=== PATIENT | male | born 1935 | race Caucasian/White ===

== ENCOUNTER 2016-08-07 07:34 | Observation (INO) | payer MEDICARE, OTHER ==
[2016-08-07] MEDS ORDERED: Furosemide 20 MG Tab PO ONE (09:15)
[2016-08-07] MEDS ORDERED: Carvedilol 3.125 MG Tab PO ONE (09:15)
[2016-08-07] MEDS ORDERED: Lisinopril 10 MG Tab PO ONE (09:15)
--- NOTE | 2016-08-07 09:47 | EDM.PDOC ---
ED HPI GENERAL MEDICAL PROBLEM - General Chief Complaint: General Stated Complaint: Not feeling well Time Seen by Provider: 08/07/16 08:21 Source of Information: Reports: Patient History Limitations: Reports: No Limitations - History of Present Illness INITIAL COMMENTS - FREE TEXT/NARRATIVE: This is a 80yo M presenting to the ER with complaints of dizziness. Patient denies any sob or other concerns. He states he has had cardiac history in the past and was told he didn't have symptoms at the time. Patient is concerned that there is something wrong. He is feeling a little better than before but continues to feel lightheaded. He has had prior episodes of dizziness but states this last episode is worse. Onset: Sudden Duration: Hour(s):, Constant, Improving Location: Reports: Generalized Severity: Mild Improves with: Reports: None Worsens with: Reports: None Associated Symptoms: Reports: Weakness - Related Data Allergies Allergy/AdvReac Type Severity Reaction Status Date / Time No Known Allergies Allergy Verified 08/07/16 07:43 Home Meds: Home Meds Aspirin [Ecotrin] 81 mg PO DAILY 07/08/14 [History] Furosemide [Lasix] 20 mg PO DAILY 07/08/14 [History] Lisinopril 10 mg PO DAILY 07/08/14 [History] Budesonide/Formoterol [Symbicort 160-4.5 Mcg Inhaler] 2 puff IH BID 12/07/14 [ History] Carvedilol [Coreg] 3.125 mg PO BID 08/07/16 [History] Multivitamin [Multivitamins] 1 each PO DAILY 08/07/16 [History] Omeprazole Magnesium [Prilosec Otc] 20 mg PO BIDMEALS 08/07/16 [History] Simvastatin [Zocor] 20 mg PO BEDTIME 08/07/16 [History] Past Medical History Cardiovascular History: Reports: Cardiomyopathy, Heart Failure, High Cholesterol , Hypertension, [place], Pacemaker Respiratory History: Reports: COPD Gastrointestinal History: Reports: None, Other (See Below) Other Gastrointestinal History: Barretts Esophagus - Past Surgical History Cardiovascular Surgical History: Reports: Coronary Artery Bypass GI Surgical History: Reports: Appendectomy Social & Family History - Tobacco Use Smoking Status *Q: Former Smoker Years of Tobacco use: 20 Used Tobacco, but Quit: Yes Month Tobacco Last Used: March Second Hand Smoke Exposure: No - Alcohol Use Days Per Week of Alcohol Use: 0 - Recreational Drug Use Recreational Drug Use: No ED ROS GENERAL - Review of Systems Review Of Systems: ROS reveals no pertinent complaints other than HPI. ED EXAM, GENERAL - Physical Exam Exam: See Below Free Text/Narrative:: left lip droop that has been present his whole life. Exam Limited By: No Limitations General Appearance: Alert, WD/WN, No Apparent Distress Eye Exam: Bilateral Eye: EOMI, PERRL Ears: Normal External Exam Ear Exam: Bilateral Ear: TM normal Nose: Normal Inspection Throat/Mouth: Normal Inspection Head: Atraumatic, Normocephalic Neck: Normal Inspection Respiratory/Chest: No Respiratory Distress, Lungs Clear, Normal Breath Sounds Cardiovascular: Normal Peripheral Pulses, Regular Rate, Rhythm Peripheral Pulses: 2+: Dorsalis Pedis (L), Dorsalis Pedis (R) GI/Abdominal: Normal Bowel Sounds Back Exam: Normal Inspection Extremities: Normal Inspection Neurological: Alert, Oriented, CN II-XII Intact Psychiatric: Normal Affect, Normal Mood Skin Exam: Warm, Dry, Intact Course - Vital Signs Last Recorded V/S: Last Vital Signs Temp 36.1 C 08/07/16 10:20 Pulse 69 08/07/16 13:48 Resp 18 08/07/16 13:48 BP 116/69 08/07/16 13:48 Pulse Ox 97 08/07/16 13:48 - Orders/Labs/Meds Labs: Laboratory Tests 08/07/16 08/07/16 08/07/16 Range/Units 07:05 08:00 08:00 WBC 4.8 (4.0-11.0) K/uL RBC 4.78 (4.50-6.50) M/uL Hgb 14.8 (13.0-18.0) g/dL Hct 44.0 (40.0-54.0) % MCV 92 (76-96) fL MCH 31.0 (27.0-32.0) pg MCHC 33.6 (31.0-35.0) g/dL RDW 14.5 (11.0-16.0) % Plt Count 160 (150-400) K/uL MPV 10.2 H (6.0-10.0) fL Neut % (Auto) 64.3 (45.0-70.0) % Lymph % (Auto) 20.7 (20.0-40.0) % [place] % (Auto) 9.6 (3.0-10.0) % Eos % (Auto) 5.0 (1.0-5.0) % Baso % (Auto) 0.4 (0.0-0.5) % Neut # (Auto) 3.08 (2.00-7.50) K/uL Lymph # (Auto) 0.99 L (1.50-4.00) K/uL [place] # (Auto) 0.46 (0.20-0.80) K/uL Eos # (Auto) 0.24 (0.04-0.40) K/uL Baso # (Auto) 0.02 (0.02-0.10) K/uL Sodium 139 (136-145) mmol/L Potassium 3.9 (3.5-5.1) mmol/L Chloride 104 (98-107) mmol/L Carbon Dioxide 26.4 (21.0-32.0) mmol/L Anion Gap 12.5 (5.0-15.0) mmol/L BUN 12 (8-26) mg/dL Creatinine 1.02 (0.70-1.30) mg/dL Est Cr Clr Drug Dosing 78.43 mL/min Estimated GFR (MDRD) > 60 (>60) MLS/MIN BUN/Creatinine Ratio 11.8 (6-25) Glucose 101 H (74-100) mg/dL POC Glucose 114 H (74-110) mg/dL Calcium 8.9 (8.5-10.1) mg/dL Total Bilirubin 0.6 (0.0-1.0) mg/dL AST 19 (15-37) U/L ALT 23 (12-78) U/L Alkaline Phosphatase 91 (46-116) U/L Troponin I < 0.017 D (0.000-0.060) ng/mL B-Natriuretic Peptide (0-450) pg/mL Total Protein 7.3 (6.4-8.2) g/dL Albumin 3.6 (3.4-5.0) g/dL Globulin 3.7 (2.2-4.2) g/dL Albumin/Globulin Ratio 1.0 (0.8-2.0) Urine Color Urine Appearance (CLEAR) Urine pH (5.0-8.0) Ur Specific [place] (1.003-1.030) Urine Protein (NEGATIVE) mg/dL Urine Glucose (UA) (NEGATIVE) mg/dL Urine Ketones (NEGATIVE) mg/dL Urine Occult Blood (NEGATIVE) Urine Nitrite (NEGATIVE) Urine Bilirubin (NEGATIVE) Urine Urobilinogen (0.2-1.0) E.U./dL Ur Leukocyte Esterase (NEGATIVE) Urine RBC /HPF Urine WBC /HPF 08/07/16 08/07/16 Range/Units 08:00 08:42 WBC (4.0-11.0) K/uL RBC (4.50-6.50) M/uL Hgb (13.0-18.0) g/dL Hct (40.0-54.0) % MCV (76-96) fL MCH (27.0-32.0) pg MCHC (31.0-35.0) g/dL RDW (11.0-16.0) % Plt Count (150-400) K/uL MPV (6.0-10.0) fL Neut % (Auto) (45.0-70.0) % Lymph % (Auto) (20.0-40.0) % [place] % (Auto) (3.0-10.0) % Eos % (Auto) (1.0-5.0) % Baso % (Auto) (0.0-0.5) % Neut # (Auto) (2.00-7.50) K/uL Lymph # (Auto) (1.50-4.00) K/uL [place] # (Auto) (0.20-0.80) K/uL Eos # (Auto) (0.04-0.40) K/uL Baso # (Auto) (0.02-0.10) K/uL Sodium (136-145) mmol/L Potassium (3.5-5.1) mmol/L Chloride (98-107) mmol/L Carbon Dioxide (21.0-32.0) mmol/L Anion Gap (5.0-15.0) mmol/L BUN (8-26) mg/dL Creatinine (0.70-1.30) mg/dL Est Cr Clr Drug Dosing mL/min Estimated GFR (MDRD) (>60) MLS/MIN BUN/Creatinine Ratio (6-25) Glucose (74-100) mg/dL POC Glucose (74-110) mg/dL Calcium (8.5-10.1) mg/dL Total Bilirubin (0.0-1.0) mg/dL AST (15-37) U/L ALT (12-78) U/L Alkaline Phosphatase (46-116) U/L Troponin I (0.000-0.060) ng/mL B-Natriuretic Peptide 162 D (0-450) pg/mL Total Protein (6.4-8.2) g/dL Albumin (3.4-5.0) g/dL Globulin (2.2-4.2) g/dL Albumin/Globulin Ratio (0.8-2.0) Urine Color Yellow Urine Appearance Clear (CLEAR) Urine pH 6.0 (5.0-8.0) Ur Specific [place] <= 1.005 (1.003-1.030) Urine Protein Negative (NEGATIVE) mg/dL Urine Glucose (UA) Negative (NEGATIVE) mg/dL Urine Ketones Negative (NEGATIVE) mg/dL Urine Occult Blood Negative (NEGATIVE) Urine Nitrite Negative (NEGATIVE) Urine Bilirubin Negative (NEGATIVE) Urine Urobilinogen 0.2 (0.2-1.0) E.U./dL Ur Leukocyte Esterase Negative (NEGATIVE) Urine RBC Not seen /HPF Urine WBC Not seen /HPF Meds: Medications Discontinued Medications Generic Name Dose Route Start Last Admin Trade Name Freq PRN Reason Stop Dose Admin Carvedilol 3.125 mg 08/07/16 09:15 08/07/16 09:26 Coreg PO 08/07/16 09:16 1.5625 mg ONETIME ONE Administration Furosemide 20 mg 08/07/16 09:15 08/07/16 09:25 Lasix PO 08/07/16 09:16 20 mg ONETIME ONE Administration Lisinopril 10 mg 08/07/16 09:15 08/07/16 09:25 Prinivil PO 08/07/16 09:16 10 mg ONETIME ONE Administration Meclizine HCl 25 mg 08/07/16 09:45 Antivert PO 08/07/16 09:46 NOW STA Departure - Departure Time of Disposition: 10:30 Disposition: Refer to Observation Clinical Impression: Dizziness, Weakness - Discharge Information - Problem List Review Problem List Initiated/Reviewed/Updated: Yes - Assessment/Plan Plan: Patient placed in observation for telemetry and a repeat troponin. Discussed recent labs and monitoring with patient and plan. Patient agrees with plan as he states he does not feel well enough to go home.
[2016-08-07 13:49] VITALS: BP 116/69
--- NOTE | 2016-08-07 17:52 | CR ---
DATE OF SERVICE: 08/07/16 CLINICAL DATA: dizziness; cardiac hx AP PORTABLE CHEST Comparison made to a prior exam dated 12/07/14. The cardiac pacer and pacer wires remain unchanged in position. The patient is status post median sternotomy. The heart is enlarged. The aorta is calcified and ectatic. The right costophrenic angle is cut off. The visualized lungs are clear. No pneumothorax. No pleural effusions. No areas of consolidation. [id number] [facility]
--- NOTE | 2016-08-08 17:17 | PCM.DCSUM1 ---
Discharge Summary - Discharge Data Discharge Date: 08/07/16 Discharge Disposition: Home, Self-Care 01 Condition: Good - Discharge Diagnosis/Problem(s) (1) Dizziness SNOMED Code(s): 434291210, 517267635 ICD Code: R42 - DIZZINESS AND GIDDINESS Status: Resolved (2) Weakness SNOMED Code(s): 94173063 ICD Code: R53.1 - WEAKNESS Status: Suspected - Patient Instructions Diet: Usual Diet as Tolerated Activity: As Tolerated Driving: May Drive Today Notify Provider of: Fever, Increased Pain, Swelling and Redness, Drainage, Nausea and/or Vomiting - Discharge Plan Home Medications: Home Meds Aspirin [Ecotrin] 81 mg PO DAILY 07/08/14 [History] Furosemide [Lasix] 20 mg PO DAILY 07/08/14 [History] Lisinopril 10 mg PO DAILY 07/08/14 [History] Budesonide/Formoterol [Symbicort 160-4.5 Mcg Inhaler] 2 puff IH BID 12/07/14 [ History] Carvedilol [Coreg] 3.125 mg PO BID 08/07/16 [History] Multivitamin [Multivitamins] 1 each PO DAILY 08/07/16 [History] Omeprazole Magnesium [Prilosec Otc] 20 mg PO BIDMEALS 08/07/16 [History] Simvastatin [Zocor] 20 mg PO BEDTIME 08/07/16 [History] Patient Handouts: Dizziness Forms: ED Department Discharge Referrals: PCP,Unknown [Primary Care Provider] - - Discharge Summary/Plan Comment Discharge Summary/Plan Comment: Counseled on f/u with PCP in the next few days. Discussed f/u in ER or clinic if any return of symptoms. Patient agrees on close monitoring and f/u. - Patient Data Vitals - Most Recent: Last Vital Signs Temp 36.1 C 08/07/16 10:20 Pulse 69 08/07/16 13:48 Resp 18 08/07/16 13:48 BP 116/69 08/07/16 13:48 Pulse Ox 97 08/07/16 13:48 Weight - Most Recent: 111.13 kg Med Orders - Current: Current Medications Discontinued Medications Carvedilol (Coreg) 3.125 mg PO ONETIME ONE Stop: 08/07/16 09:16 Last Admin: 08/07/16 09:26 Dose: 1.5625 mg Furosemide (Lasix) 20 mg PO ONETIME ONE Stop: 08/07/16 09:16 Last Admin: 08/07/16 09:25 Dose: 20 mg Lisinopril (Prinivil) 10 mg PO ONETIME ONE Stop: 08/07/16 09:16 Last Admin: 08/07/16 09:25 Dose: 10 mg Meclizine HCl (Antivert) 25 mg PO NOW STA Stop: 08/07/16 09:46 *Q Meaningful Use (DIS) - VTE *Q VTE Criteria *Q: - Stroke *Q Stroke Criteria *Q: - AMI *Q AMI Criteria *Q:
== END 2016-08-07 14:07 | disposition home or self-care (01) ==
LOC: LB.ED 07:34 → LB.MS 09:44
PROVIDERS: ADMIT Family Medicine; ATTEND Family Medicine
DX: R42 Dizziness and giddiness (principal); R53.1 Weakness; I10 Essential (primary) hypertension; E78.00 Pure hypercholesterolemia, unspecified; J44.9 Chronic obstructive pulmonary disease, unspecified; Z79.82 Long term (current) use of aspirin; Z79.899 Other long term (current) drug therapy; Z90.49 Acquired absence of other specified parts of digestive tract; Z95.1 Presence of aortocoronary bypass graft; Z87.891 Personal history of nicotine dependence
CPT/HCPCS: 36415; 71010; 80053; 81001; 82962; 83880; 84484; 85025; 93005; 99235; 99285; A9270; G0378

== ENCOUNTER 2020-04-15 19:17 | Emergency (ER) | payer MEDICARE ==
--- NOTE | 2020-04-16 02:42 | ER ---
REASON FOR EMERGENCY ROOM VISIT: Possible pacemaker malfunction. HISTORY: This 84-year-old man has a history of myocardial infarction x2 in the past. He also has had a pacemaker and defibrillator since 2011. He has been feeling well lately with no shortness of breath or chest pain. However, 3 or 4 days ago he noticed some loud beeping noise and was not certain where that came from. However, a day or 2 later, he heard it again and he realized that this was a warning beep from his pacemaker. For this reason, he came in to have this checked. He has not had any shortness of breath or exertional dyspnea or cough. He did test positive for COVID-19 approximately 4 weeks ago, but he has not had any symptoms. PAST MEDICAL HISTORY: Include; 1. Ischemic heart disease with 2 prior myocardial infarctions, coronary artery bypass grafting. 2. History of pacemaker with defibrillator. 3. History of cardiomyopathy. 4. COPD. 5. History of Page's esophagus. 6. Past history of smoking. MEDICATIONS: Reviewed, please see electronic medical record. They include the following; carvedilol, simvastatin, omeprazole, vitamins, lisinopril, furosemide, Symbicort and aspirin. ALLERGIES: NONE TO MEDICATIONS. REVIEW OF SYSTEMS: Pertinent positives and negatives as listed in the HPI. PHYSICAL EXAMINATION: GENERAL: He has bilateral arcus senilis. He is hard of hearing. HEENT: Unremarkable. NECK: Supple. No JVD is noted. No bruits. CHEST: Clear to auscultation. He has a median sternotomy scar that is well healed. Pacemaker is noted in the upper outer quadrant of his left anterior chest. CHEST: Clear to auscultation with no wheezes, rhonchi, or rales. CARDIAC: Regular rate without murmur. ABDOMEN: Soft and nontender. EXTREMITIES: Trace edema. Toes and fingers pink and warm with no cyanosis. FURTHER EMERGENCY ROOM COURSE: He did have some old cards from his 1st pacemaker, which was a [place] instrument pacemaker. We eventually discovered that his most recent pacemaker that was replaced in 2014 was a [employer] pacemaker. This was fortuitous because we were able to run an interrogation on this pacemaker, which supplied this with data which was of a fairly highly technical nature. At this point in time, the suggestion was that there is either possible underlying issue with early congestive heart failure versus a problem with the defibrillator lead. I discussed this with the redipper process controller at [facility] in [place], Dr. Bhandari. We will go ahead and obtain a BNP. The results of which are pending at this time and a chest x-ray to make sure that there is no evidence of a cracked lead. The 12- lead EKG showed a paced rhythm at 91 beats per minute with no ectopy noted. Since, he is clinically not in any heart failure and he is pacing at this time and if his BNP is not inordinately elevated, we will make arrangements for him to be seen at the [facility] in [place] where they can do the appropriate diagnostic testing. It appears to me that he has at least 5 more months left on his battery life. Since there is a concern about a lead and possible need for battery change, he may need to have the whole thing replaced and they will make that determination in the pacemaker clinic. This was explained to the patient. He understands that we are in the process of arranging contact with the [facility] in [place] and transportation, so that he can get down there tomorrow and be seen. He understands and agrees with this plan. All questions were answered. IMPRESSION: Possible pacemaker malfunction. ASHWINI/GIORGIO /[id number]
[2020-04-16 07:26] VITALS: BP 149/95; PULSE 91
--- NOTE | 2020-04-16 08:47 | CR ---
DATE OF SERVICE: 04/15/20 CLINICAL DATA: Possible pacemaker malfunction PA AND LATERAL CHEST: Comparison is made to a prior exam dated 08/07/16. The cardiac pacer and pacer wires remain unchanged in position. The patient is status post median sternotomy. The heart is mildly enlarged. The aorta is calcified and ectatic. The lungs are clear. No pneumothorax. No pleural effusions. There is degenerative disc disease throughout the thoracic spine. There is anterior wedging of multiple mid and lower thoracic vertebrae, age indeterminate. [id number] [facility]
== END 2020-04-15 22:17 | disposition home or self-care (01) ==
LOC: LB.ED 19:17
DX: T82.118A Breakdown (mechanical) of other cardiac electronic device, initial encounter (principal); I25.2 Old myocardial infarction; J44.9 Chronic obstructive pulmonary disease, unspecified; Z95.1 Presence of aortocoronary bypass graft
CPT/HCPCS: 36415; 71046; 83880; 93005; 99283; 99284-25

== ENCOUNTER 2021-01-08 10:59 | Emergency (ER) | payer OTHER, MEDICARE ==
--- NOTE | 2021-01-08 12:01 | EDM.PDOC ---
ED HPI GENERAL MEDICAL PROBLEM - General Chief Complaint: Upper Extremity Injury/Pain Stated Complaint: NECK PAIN RADIATING TO SHOULDERS Time Seen by Provider: 01/08/21 11:25 Source of Information: Reports: Patient History Limitations: Reports: No Limitations - History of Present Illness INITIAL COMMENTS - FREE TEXT/NARRATIVE: patient reports b/l neck pain and spams for 3 days. Denies any trauma or injury. No numbness or tingling. Reports that it is b/l and hurts more when turning head sideways. Have tried Aspirin at home with no benefit. no weakness or numbness. no CP. Reports similar episode in the past couple years where he was referred to a chiropractor, which helped with his neck pain. Onset: Gradual Duration: Day(s): (3) Location: Reports: Neck Quality: Reports: Sharp Severity: Severe Improves with: Reports: Immobilization Worsens with: Reports: Movement Neck Pain Score (Numeric/FACES): 9 - Related Data Allergies Allergy/AdvReac Type Severity Reaction Status Date / Time No Known Allergies Allergy Verified 01/08/21 11:55 Home Meds: Home Meds Furosemide [Lasix] 20 mg PO DAILY 07/08/14 [History] RX: Aspirin [Ecotrin EC] 81 mg PO DAILY 07/08/14 [History] RX: Lisinopril 10 mg PO DAILY 07/08/14 [History] Budesonide/Formoterol [Symbicort 160-4.5 Mcg Inhaler] 2 puff IH BID 12/07/14 [History] Multivitamin [Multivitamins] 1 each PO DAILY 08/07/16 [History] Omeprazole Magnesium [Prilosec Otc] 20 mg PO BIDMEALS 08/07/16 [History] RX: Simvastatin [Zocor] 20 mg PO BEDTIME 08/07/16 [History] carvediloL [Coreg] 3.125 mg PO BID 08/07/16 [History] Past Medical History Cardiovascular History: Reports: Automatic Implantable Cardioverter Defibrillators, Cardiomyopathy, Heart Failure, High Cholesterol, Hypertension, [place], Pacemaker Respiratory History: Reports: COPD Gastrointestinal History: Reports: None, Other (See Below) Other Gastrointestinal History: Barretts Esophagus - Infectious Disease History Infectious Disease History: Reports: Chicken Pox, Influenza, Novel Coronavirus - Past Surgical History Cardiovascular Surgical History: Reports: Coronary Artery Bypass GI Surgical History: Reports: Appendectomy Review of Systems - Review of Systems Review Of Systems: See Below Constitutional: Reports: No Symptoms Respiratory: Reports: No Symptoms Cardiovascular: Reports: No Symptoms GI/Abdominal: Reports: No Symptoms Skin: Reports: No Symptoms Neurological: Reports: No Symptoms Psychiatric: Reports: No Symptoms ED EXAM, GENERAL - Physical Exam Exam: See Below Exam Limited By: No Limitations General Appearance: Alert, WD/WN, No Apparent Distress Eye Exam: Bilateral Eye: EOMI Head: Atraumatic, Normocephalic Neck: Normal Inspection, Non-Tender, Limited Range of Motion (due to pain) Respiratory/Chest: No Respiratory Distress, Lungs Clear Cardiovascular: Regular Rate, Rhythm Neurological: Alert, Oriented Course - Vital Signs Last Recorded V/S: Last Vital Signs Temp 37.0 C 01/08/21 11:47 Pulse 78 01/08/21 11:47 Resp 18 01/08/21 11:47 BP 165/97 H 01/08/21 11:47 Pulse Ox 95 01/08/21 11:47 - Orders/Labs/Meds Orders: Active Orders 24 hr Category Date Time Status Cervical Spine 2V or 3V [CR] Stat Exams 01/08/21 11:46 Taken Meds: Medications Discontinued Medications Generic Name Dose Route Start Last Admin Trade Name Anisa PRN Reason Stop Dose Admin Ketorolac Tromethamine Confirm 01/08/21 12:36 01/08/21 13:06 Ketorolac 30 Mg/Ml Sdv Administered 01/08/21 12:37 Not Given Dose 30 mg .ROUTE .STK-MED ONE Ketorolac Tromethamine 30 mg 01/08/21 12:29 01/08/21 12:36 Ketorolac 60 Mg/2 Ml Sdv IM 01/08/21 12:30 30 mg ONETIME ONE Administration Orphenadrine Citrate Confirm 01/08/21 12:36 01/08/21 13:05 Orphenadrine 60 Mg/2 Ml Inj Administered 01/08/21 12:37 Not Given Dose 60 mg .ROUTE .STK-MED ONE Orphenadrine Citrate 60 mg 01/08/21 12:29 01/08/21 12:34 Orphenadrine 60 Mg/2 Ml Inj IM 01/08/21 12:30 60 mg ONETIME ONE Administration - Re-Assessments/Exams Free Text/Narrative Re-Assessment/Exam: cervical 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 IM Toradol and Norflex were given. Reports pain has significantly improved Departure - Departure Time of Disposition: 13:14 Disposition: Home, Self-Care 01 Condition: Good Clinical Impression: Cervical muscle strain Qualifiers: Encounter type: initial encounter Qualified Code(s): S16.1XXA - Strain of muscle, fascia and tendon at neck level, initial encounter - Discharge Information *PRESCRIPTION DRUG MONITORING PROGRAM REVIEWED*: Not Applicable *COPY OF PRESCRIPTION DRUG MONITORING REPORT IN PATIENT JIMMY: Not Applicable Instructions: Cervical Strain and Sprain Rehab-SportsMed Referrals: PCP,None [Primary Care Provider] - Forms: ED Department Discharge Sepsis Event Note (ED) - Evaluation Sepsis Screening Result: No Definite Risk - Focused Exam Vital Signs: Vital Signs Temp Pulse Resp BP Pulse Ox 01/08/21 11:47 37.0 C 78 18 165/97 H 95 - Problem List & Annotations (1) Cervical muscle strain SNOMED Code(s): 835317319 Code(s): S16.1XXA - STRAIN OF MUSCLE, FASCIA AND TENDON AT NECK LEVEL, INIT Status: Acute Priority: Low Current Visit: Yes Qualifiers: Encounter type: initial encounter Qualified Code(s): S16.1XXA - Strain of muscle, fascia and tendon at neck level, initial encounter - Problem List Review Problem List Initiated/Reviewed/Updated: Yes - My Orders Last 24 Hours: My Active Orders 01/08/21 11:46 Cervical Spine 2V or 3V [CR] Stat - Assessment/Plan Last 24 Hours: My Active Orders 01/08/21 11:46 Cervical Spine 2V or 3V [CR] Stat Plan: - use muscle relaxants as prescribed - apply warm pads on the affected area - follow up with the physical therapy for further management - follow up with your PCP in 1-2 weeks as needed
[2021-01-08 12:08] VITALS: BP 165/97; PULSE 78
[2021-01-08] MEDS: Orphenadrine 60 MG/2 ML Inj IM ONE (12:34)
[2021-01-08] MEDS: Ketorolac 60 MG/2 ML SDV IM ONE (12:36)
[2021-01-08] MEDS: Orphenadrine 60 MG/2 ML Inj ONE (13:05)
[2021-01-08] MEDS: Ketorolac 30 MG/ML SDV ONE (13:06)
--- NOTE | 2021-01-09 08:13 | CR ---
Date of Service: 01/08/21 Clinical Data: Pain. CERVICAL SPINE: No priors. There is diffuse osteopenia. No acute fracture or dislocation. There are disk margin spurs with disk space narrowing at multiple levels. There is facet joint hypertrophy throughout the cervical spine. No other significant findings. If the patient's symptoms persist, an MRI scan should be considered. [id number] [facility]
== END 2021-01-08 13:18 | disposition home or self-care (01) ==
LOC: LB.ED 10:59
DX: S16.1XXA Strain of muscle, fascia and tendon at neck level, initial encounter (principal); E78.00 Pure hypercholesterolemia, unspecified; I10 Essential (primary) hypertension; I25.2 Old myocardial infarction; J44.9 Chronic obstructive pulmonary disease, unspecified; Z79.82 Long term (current) use of aspirin; Z79.899 Other long term (current) drug therapy; Z86.16 Personal history of COVID-19; X58.XXXA Exposure to other specified factors, initial encounter
CPT/HCPCS: 72040; 96372; 99283; J1885; J2360

== ENCOUNTER 2021-09-21 12:13 | Emergency (ER) | payer OTHER, MEDICARE ==
[2021-09-21] MEDS ORDERED: Aspirin 81 MG Tab.Chew PO ONE (12:24)
[2021-09-21] MEDS ORDERED: Sodium Chloride 0.9% 10 ML Syringe FLUSH PRN (12:26)
[2021-09-21] MEDS ORDERED: Heparin Sodium/D5W 25,000 UNITS/500 ML BAG IV SCH (13:30)
[2021-09-21] MEDS ORDERED: Heparin Sodium 5,000 Units/ML Vial IVPUSH ONE (13:55)
[2021-09-21 14:27] VITALS: BP 145/89; PULSE 70
== END 2021-09-21 14:46 ==
LOC: LB.ED 12:13
DX: I21.4 Non-ST elevation (NSTEMI) myocardial infarction (principal); I11.0 Hypertensive heart disease with heart failure; I50.9 Heart failure, unspecified; E78.00 Pure hypercholesterolemia, unspecified; J44.9 Chronic obstructive pulmonary disease, unspecified; Z79.899 Other long term (current) drug therapy; Z20.822 Contact with and (suspected) exposure to COVID-19
CPT/HCPCS: 36415; 71045; 80053; 83735; 83880; 84484; 85025; 85730; 93005; 96365; 99285-25; A0425; A0429; A9270-GY; J1644; J3490; U0002